=== PATIENT | male | born 1970 | race Caucasian/White ===

== ENCOUNTER 2023-08-02 11:10 | Day surgery (SDC) | payer OTHER, SELFPAY ==
--- OUTSIDE RECORDS SUMMARY | 2023-08-02 11:14 | XMS_ITS | Clinical Summary ---
Author Name Unknown Organization [facility] Address [place], [place] [address] Care Team Providers Care Intake Counselor Name Role Phone Unavailable Primary Care Provider Unavailabl e Allergies No known active allergies Medications Medication Sig Dispensed Refills Start Date End Date Status sertraline (ZOLOFT) 100 mg tabletIndications:Juan José or depression, single episode Take 1/2 tab daily for 4 days, then take one tab daily 90 tablet 1 11/14/2011 Active busPIRone (BUSPAR) 10 mg tabletIndications:Anx iety state, unspecified Take 1 tablet by mouth 3 times daily. 270 tablet 1 11/14/2011 Active Active Problems Problem Noted Date Diagnosed Date Major depression, single episode 10/20/2010 Anxiety state, unspecified 10/03/2010 Immunizations Name Administration Dates Next Due Td (Age >=7 Years) 06/25/1993 Tdap 11/14/2011 Social History Tobacco Use Types Packs/Day Years Used Date Smoking Tobacco: Former Cigarettes Q uit: 08/24/1999 Smokeless Tobacco: Never Alcohol Use Standard Drinks/Week Comments No 0 (1 standard drink = 0.6 oz pur e alcohol) Sex and Gender Information Value Date Recorded Sex Assigned at Not on file Gender Identity Not on file Sexual Orientation Not on file Obstetrics History Last Filed Vital Signs Vital Sign Reading Time Taken Comments Blood Pressure 120/72 01/10/2012 4:29 PM CDT Pulse 64 01/10/2012 4:29 PM CDT Temperature 36.6 ??C (97.9 ??F) 07/27/2009 7:09 AM CS T Respiratory Rate - - Oxygen Saturation 97% 07/29/2009 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 Inhaled Oxygen Concentration - - Weight 86.4 kg (190 lb 6.4 oz) 01/10/2012 4:29 P M CDT Height - - Body Mass Index - - Plan of Treatment Health Maintenance Due Date Last Done Comments COVID-19 vaccine series (#1) 1969 Depression screening for age 12+ 1981 HIV for age 15-65 1984 BMI (ht and wt on same day) for age 18+ 1987 Hepatitis C screening for ag e 18-79 1987 Colonoscopy through age 75 2014 Lipids for age 45-75 2014 Zoster (shingles) series for age 50+ (1 of 2) 2019 Tetanus booster 11/13/2021 11/14/2011, 06/25/1993 Influenza for age 50-64 02/23/2023 Tdap Completed 11/14/2011 Pneumococcal series for age 6-64 Aged Out No longer eligible b ased on patient's age to complete this topic
[2023-08-02 11:22] VITALS: BMI 27.9
[2023-08-02 11:42] VITALS: BP 137/74; PULSE 56; RESP 16; TEMP 36.5; O2SAT 94
[2023-08-02] MEDS: SODIUM CHLORIDE 0.9 % (FLUSH) 10 ML SYRINGE IVF (11:44)
[2023-08-02] MEDS: LACTATED RINGERS 1000 ML 1,000 ML 100 ML IV (11:44)
[2023-08-02] MEDS: CEFAZOLIN 2 GM INJ IVP (13:07)
[2023-08-02] MEDS: BUPIVACAINE 0.25% 30 ML INJECTION (13:20)
[2023-08-02 13:50] VITALS: BP 109/80; PULSE 58; RESP 14; TEMP 36.5; O2SAT 97
--- NOTE | 2023-08-02 13:58 | W.ANESCHARGE ---
Anesthesia Charges Start Date/Time Anesthesia Start Date: 08/02/23 Anesthesia Start Time: 12:57 Stop Date/Time Anesthesia Stop Date: 08/02/23 Anesthesia Stop Time: 13:53
[2023-08-02 14:00] VITALS: BP 121/107; PULSE 55; RESP 14; O2SAT 95
[2023-08-02 14:15] VITALS: BP 130/91; PULSE 46; RESP 14; O2SAT 97
--- NOTE | 2023-08-02 14:17 | PM.GSPRC ---
Operative Note Date of procedure: 08/02/23 Pre-op diagnosis: 1. Left lower leg mass. Post-op diagnosis: 1. Left lower leg epidermal cyst. Type of Procedure: 1. Excision of left lower leg mass with complex incisional closure. Indications: 53-year-old male was seen in clinic for evaluation of an enlarging left lower leg mass. He initially noticed it years ago and with time it has been growing in size. Patient denied drainage from the mass and denied infection. On clinical exam he had a golf ball sized mass in his anterior lower leg. This was soft to palpation but had limited mobility due to its size. Given the size of the mass and its location, excision in the operating room was recommended. The procedure was discussed in detail. The risks associated procedure including infection, bleeding, and possible recurrence of this mass were all discussed with the patient, and he agreed to proceed. Procedure Description: After discussing the risks and benefits of the procedure, the patient signed informed consent.? The operative site was marked and the patient was brought to the operating room and placed on the operating table in supine position.? Care was taken to pad the patient's pressure points.?? The patient was then sedated by anesthesia.?? The operative site was then prepped and draped in the usual sterile fashion.? A time-out was then performed. Local anesthetic was injected at the surgical site. A vertical elliptical skin incision was made with a scalpel. Subcutaneous tissue was divided with cautery. The mass had an appearance of epidermal cyst with white cheesy material coming out from the cyst opening. The cyst was mobilized off subcutaneous tissue and muscle fascia with cautery. The cyst attached to the ellipse of skin was excised and sent to pathology. It was measuring approximately 5 x 6 cm. Skin flaps were then mobilized medially and laterally with cautery. The incision was then closed in layers with interrupted 2-0 in 3-0 Vicryl sutures. The skin was closed with a running 4-0 Monocryl stitch. The length of the incision was 13 cm. Steri-Strips and sterile dressings were placed over the incision. The lower leg was then wrapped with an Sameer wrap. All counts were correct at the end of the case. ? The patient was then woken and transported to the recovery area in stable condition. ? The patient tolerated the procedure well. Findings: Epidermal cyst. Anesthesia: MAC and local Surgeon: Romi Hall MD Estimated blood loss (mL): 5 Additional Specimen Information: 1. Left lower leg mass. Condition: stable Disposition: same day
[2023-08-02 14:30] VITALS: BP 137/86; PULSE 48; RESP 14; O2SAT 96
[2023-08-02 14:45] VITALS: BP 140/97; PULSE 51; RESP 14; O2SAT 99
[2023-08-02] MEDS: HYDROCODONE-ACETAMIN 5-325 MG 1 TAB PO (14:45)
== END 2023-08-02 14:56 | disposition home or self-care (01) ==
PROVIDERS: PCP Family Medicine; Visit Provider Surgery
PROC: (CPT 11406; principal; 2023-08-02 12:45)
DX: L72.0 Epidermal cyst (principal)
CPT/HCPCS: 11406; 12035; 00400; 88304; A9270; J0665; J0690; J1100; J2250; J2405; J2704; J3010; J3490; J7120

== ENCOUNTER 2023-08-06 07:03 | Outpatient (CLI) | payer OTHER, SELFPAY ==
--- OUTSIDE RECORDS SUMMARY | 2023-08-06 07:05 | XMS_ITS | Clinical Summary ---
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 [place] [id number], from Last 3 Months
--- NOTE | 2023-08-06 08:31 | W.ANESCHARGE ---
Anesthesia Charges Start Date/Time Anesthesia Start Date: 08/06/23 Anesthesia Start Time: 08:00 Stop Date/Time Anesthesia Stop Date: 08/06/23 Anesthesia Stop Time: 08:30
--- NOTE | 2023-08-06 12:12 | W.ANESCHARGE ---
Anesthesia Charges Start Date/Time Anesthesia Start Date: 08/06/23 Anesthesia Start Time: 08:00 Stop Date/Time Anesthesia Stop Date: 08/06/23 Anesthesia Stop Time: 08:30
== END 2023-08-06 07:04 | disposition home or self-care (01) ==
LOC: OP CLINIC 07:03
PROVIDERS: PCP Family Medicine; Visit Provider Internal Medicine
DX: Z12.11 Encounter for screening for malignant neoplasm of colon (principal); K63.5 Polyp of colon
CPT/HCPCS: 00811; 45385; 88305; J2704

== ENCOUNTER 2023-08-15 09:32 | Outpatient (CLI) | payer OTHER, SELFPAY | END 2023-08-15 09:33 | disposition home or self-care (01) | LOC: NFLDREF 08-16 07:11 | PROVIDERS: PCP Family Medicine; Referring Provider Family Medicine; Visit Provider Family Medicine | DX: Z13.220 Encounter for screening for lipoid disorders (principal); Z13.1 Encounter for screening for diabetes mellitus; Z12.5 Encounter for screening for malignant neoplasm of prostate; Z80.42 Family history of malignant neoplasm of prostate | CPT/HCPCS: 80061; 82947; G0103 ==